=== PATIENT | male | born 1970 ===

== ENCOUNTER 2021-08-03 09:46 | Emergency (ER) | payer OTHER, SELFPAY ==
[2021-08-03 09:51] VITALS: BP 131/89; PULSE 95; RESP 18; TEMP 36.3; O2SAT 99; BMI 33.9
[2021-08-03 09:53] VITALS: BP 124/94; PULSE 76; RESP 18; TEMP 36.6; O2SAT 100
--- NOTE | 2021-08-03 09:55 | XRR_ITS ---
PROCEDURE INFORMATION: Exam: XR Right Ankle Exam date and time: 08/03/2021 10:48 AM Age: 51 years old Clinical indication: Injury or trauma; Fall; Blunt trauma; Ankle; Right; Additional info: Right ankle pain after injury TECHNIQUE: Imaging protocol: XR Right ankle. Views: Frontal, lateral, and oblique, 3 views. COMPARISON: No relevant prior studies available. FINDINGS: Bones/joints: Oblique displaced fracture of the distal fibular metadiaphysis extending superior posteriorly from the level of the tibiotalar joint, 3.6 mm posterior, 9.1 mm lateral displacement of the distal segment, slight varus alignment. Widening of the medial ankle joint mortise measuring 11.3 mm with lateral subluxation of the talus relative to the distal tibia. Medial talar dome deformity suggesting possible chronic osteochondral defect. A small plantar calcaneal ossified spur is present. A small Achilles' tendon enthesis of the calcaneus is present. Soft tissues: Slight lateral soft tissue swelling (less than expected, acute?). XR/XR ankle RT min 3V* [id number] IMPRESSION: 1. Acute distal fibular fracture. 2. Medial collateral ligamentous injury. 3. Medial talar dome deformity suggesting possible chronic osteochondral defect. 4. Plantar calcaneal spur. 5. Achilles tendon insertional enthesopathy.
--- NOTE | 2021-08-03 10:59 | W.ED.EXTPRO ---
HPI - Extremity Problem General: Chief complaint: Extremity Injury, Lower Stated complaint: right foot dislocation Time Seen by Provider: 08/03/21 10:45 Source: patient Mode of arrival: ambulatory Limitations: no limitations History of Present Illness: 51-year-old male presents to the ER today for right ankle pain and dislocation. Patient reports he was running yesterday and slipped on wet grass. He reports his ankle turned inward and displaced. Patient reports he went down and was able to pop the ankle back into place and make it home. Patient reports pain with weightbearing and movement. He reports pain at rest is tolerable. Patient denies ever having done anything like this before. He reports there is moderate swelling this morning with some bruising. Review of Systems General: Reports: 10 or more systems reviewed and unremarkable except in HPI and below Physical Exam Const: COMMON NORMALS: no acute distress, average body habitus, patient oriented x3, no limitations, healthy appearing, alert and well nourished Neck/C-Spine: COMMON NORMALS: full ROM Resp: COMMON NORMALS: normal respiratory effort and No retractions Cardio: COMMON NORMALS: regular rate and regular rhythm RATE: regular rate RHYTHM: regular rhythm Extremity: NARRATIVE EXTREMITY EXAM: Patient has pain with flexion and extension of the right ankle. There is moderate swelling noted and tenderness to the distal fibula. Mild bruising also noted surrounding the lateral malleolus. Neuro: COMMON NORMALS: patient oriented x3 SENSORIUM/ORIENTATION: Yes alert Psych: COMMON NORMALS: mental status grossly normal, Normal thought process present and cooperative THOUGHT PROCESS: Normal thought process present Skin: COMMON NORMALS: no rashes or lesions noted NARRATIVE SKIN EXAM: Bruising noted to the right ankle GENERAL SKIN EXAM: no rashes or lesions noted Course ED course: 51 old male presents to the ER today for right ankle pain after a fall yesterday while running. Patient reports he had to pop his ankle back into place when he fell. He reports pain with weightbearing. We will get x-ray at this time. Consultations: Consultation #1: I spoke with Dr. Cronin regarding pts displaced ankle fracture. He recommended splinting pt and having him F/U this week in clinic. Time: 12:05 Vital Signs: Vital signs: Vital Signs Temperature 97.8 F 08/03/21 09:53 Pulse Rate 76 08/03/21 09:53 Respiratory Rate 18 08/03/21 09:53 Blood Pressure 124/94 08/03/21 09:53 Pulse Oximetry 100 08/03/21 09:53 MDM - Extremity (Nontraumatic) Medical Decision Making 51-year-old male presents to the ER today for right ankle pain after slipping in wet grass yesterday. Patient reports he dislocated his ankle at that time and put it back into place. Patient reports continued pain with weightbearing and an unstable ankle. Patient on exam appears to have swelling and bruising noted to the right ankle. X-ray indicates a dislocated distal fibular fracture with ligamentous injuries. Discussed findings with patient and also Dr. Cronin. Dr. Cronin recommended patient follow-up in clinic this week. Case management referral placed. Patient was placed in a stirrup splint in the ER. Patient was offered pain medications however refused at this time. We will send him home with ketorolac to be used as needed. Recommended patient stay off of his foot at this time. Work note given. Patient has crutches with him. Rest, ice and elevation recommended. Return to the ER with new or worsening symptoms. Patient verbalized understanding and is in agreement with the treatment plan. Lab Data Radiology Impressions Ankle X-Ray 08/03/21 09:55 IMPRESSION: 1. Acute distal fibular fracture. 2. Medial collateral ligamentous injury. 3. Medial talar dome deformity suggesting possible chronic osteochondral defect. 4. Plantar calcaneal spur. 5. Achilles tendon insertional enthesopathy. Critical Care Time Critical Care Time: Critical Care Time: No Discharge Plan Discharge Patient Disposition: Home Clinical Impression: Displaced fracture of right fibula Condition: Stable Prescriptions: New ketorolac 10 mg tablet 10 mg PO Q8H PRN (Reason: pain) 3 Days Qty: 12 0RF Discharge Orders: Discharge ED (Routine); Ordered 08/03/21 Ordered By: Parul Sepulveda Discharge Diet: Usual diet Discharge Activity: Limit activity as instructed and Use walker/crutches as instructed Patient Instructions: Opioid Safety Activity Restrictions/Additional Instructions: Alternate Tylenol and Motrin for pain. Rest, ice, elevation recommended. Do not get splint wet. Follow-up with orthopedic surgeon as discussed. Remain nonweightbearing at all times. Return to the ER with new or worsening symptoms. Stand Alone Forms: Work/School Release Coding Level of Care Code ED Lacquer Coater for Pranay Fwd Exam Detailed
[2021-08-03 12:33] VITALS: BP 125/91; PULSE 93; RESP 16; TEMP 37.2; O2SAT 98
--- NOTE | 2021-08-04 15:41 | DCPLANNER ---
Addendum entered by Jodee Guerrero 08/07/21 07:22: Patient had a follow up appointment scheduled at ortho, with - patient did attend appointment. Original Note: lean manager had message to schedule a follow up appointment for patient with ortho. lean manager sent patients information to the front office staff at ortho. Patients information will be printed and reviewed. Clinic will call patient with appointment information.
== END 2021-08-03 12:57 | disposition home or self-care (01) ==
PROVIDERS: Emergency Provider Physician Assistant
DX: S82.431A Displaced oblique fracture of shaft of right fibula, initial encounter for closed fracture (principal); W01.0XXA Fall on same level from slipping, tripping and stumbling without subsequent striking against object, initial encounter; Y93.02 Activity, running
CPT/HCPCS: 29515; 73610; 99283

== ENCOUNTER 2021-08-05 14:50 | Outpatient (CLI) | payer OTHER, SELFPAY | END 2021-08-05 14:51 | disposition home or self-care (01) | LOC: SPT 14:51 | PROVIDERS: Visit Provider Podiatrist Foot & Ankle Surgery | DX: Z46.89 Encounter for fitting and adjustment of other specified devices (principal); S82.851D Displaced trimalleolar fracture of right lower leg, subsequent encounter for closed fracture with routine healing; X58.XXXD Exposure to other specified factors, subsequent encounter | CPT/HCPCS: 97760; L4361 ==

== ENCOUNTER 2021-08-07 05:30 | Day surgery (SDC) | payer OTHER, SELFPAY ==
[2021-08-06 15:41] VITALS: BMI 33.9
[2021-08-07] VITALS (9 sets, daily range): BP systolic 99–133; BP diastolic 66–93; PULSE 71–95; RESP 12–17; TEMP 36.3–36.6; O2SAT 93–99
--- NOTE | 2021-08-07 | SCC_ITS ---
Procedure done: Open reduction internal fixation right trimalleolar fracture. CPT 07405 16 seconds of fluoroscopic guidance, for a cumulative dose of 0.481 mGy, was provided to Dr. Lynn by the radiology department. C-arm images of the right ankle were saved for the patient's permanent record. [facility]
[2021-08-07] MEDS: CELEcoxib 200 mg Capsule 400 MG PO (06:18)
[2021-08-07] MEDS: gabapentin 300 mg Capsule PO (06:18)
[2021-08-07] MEDS: sodium chloride 0.9% 1,000 ML 30 ML IV (06:21)
--- NOTE | 2021-08-07 06:35 | W.PM.OPSUD ---
Surgery/Procedure H&P Update DATE OF PROCEDURE: August 07, 2021 DATE H&P PERFORMED: 08/05/21 CHANGES TO PREVIOUS DOCUMENTATION: None PREOP DIAGNOSIS: Right trimalleolar fracture PLANNED PROCEDURE: Operation Date: 08/07/21 07:00 Proposed Procedures p ORIF Ankle 89312/S82.851A(Right) - Real Lynn DPM
--- NOTE | 2021-08-07 06:39 | XRR_ITS ---
PROCEDURE INFORMATION: Exam: XR Right Ankle Exam date and time: 08/07/2021 6:45 AM Age: 51 years old Clinical indication: Condition or disease; Other: Fracture; Additional info: Pre op eval TECHNIQUE: Imaging protocol: XR Right ankle. Views: 3 or more views. Total images: 3 COMPARISON: CR (LOW EXM, ) 08/03/2021 10:48 AM FINDINGS: Bones/joints: Oblique fracture of the distal right fibular metadiaphyseal area with distal fragment showing normal relationship with talus. Linear lucency along the posterior malleolus suggest nondisplaced fracture unchanged. Lucency seen along the medial talar dome suggest subchondral cysts and appears unchanged from prior exam. A heel spur is present. An enthesophyte is noted at the Achilles tendon insertion site. Soft tissues: Widening of medial ankle joint space suggesting deltoid ligament disruption with medial translation of tibia and proximal fibular fragment. XR/XR ankle RT min 3V* [id number] IMPRESSION: 1. Oblique fracture of the distal right fibular metadiaphyseal area with distal fragment showing normal relationship with talus. 2. Widening of medial ankle joint space suggesting deltoid ligament disruption with medial translation of tibia and proximal fibular fragment. 3. Linear lucency along the posterior malleolus suggest nondisplaced fracture unchanged. 4. Lucency seen along the medial talar dome suggest subchondral cysts and appears unchanged from prior exam.
--- NOTE | 2021-08-07 06:43 | P.OP_ITS ---
Operative Report Date of procedure: August 07, 2021 Pre-op diagnosis: Right trimalleolar fracture Post-op diagnosis: Right trimalleolar fracture Post-op findings: None Procedure done: Open reduction internal fixation right trimalleolar fracture. CPT 37198 Implants: [place] anatomic fibular plate, 3.5 mm locking and nonlocking screws, Arthrex tight rope XP. 2-0 Vicryl, 3-0 Vicryl, skin nohelia. Pathology: None Surgeon: Real Lynn D.P.M. Property Management Bookkeeper: Rodney Estimated blood loss: 5 Approximately 34 minutes IV fluids: None Urine output: None Complications: None Findings: None Brief History: Patient slipped in wet grass sustaining a trimalleolar ankle fracture with significant displacement of the fibula as well as external rotation, talus was approximately 25% laterally displaced out of the mortise. This was a closed fracture, no open wounds. I explained to the patient the necessity of ORIF given the gross instability and displacement of his fracture. He is agreeable. Also informed the patient that he has a osteochondral defect at the medial talar dome that measures over 1 cm has age-indeterminate appearance but appears older with some resorption and sclerosing at the margins of the OCD. Patient declined operative intervention on the osteochondral defect, he also believes that it is older due to previous injury and that it does not cause him pain on a daily basis and would like to leave it alone for now. Will proceed with ORIF of right trimalleolar fracture. Risks include but are not limited to pain, bleeding, numbness, infection, hardware failure, hardware rotation, delayed union, malun ion, nonunion, high likelihood of posttraumatic arthritis. Risk for deep vein thrombosis, heart attack, stroke and . Patient is n.p.o. since midnight. Informed consent signed by patient and myself. I initialed his right lower extremity. He wishes to proceed. No guarantees written, expressed or implied. Procedure: Under mild sedation the patient was brought to the operating room and placed on the operating table in supine position. A timeout was performed. Anesthesia was then administered by the anesthesia service. Local anesthesia injected by myself consisting of one-to-one mixture 1% lidocaine and 0.5 sent Marcaine plain in a right ankle block fashion. Well-padded pneumatic tourniquet applied high calf to the right lower extremity. The right lower extremity was then scrubbed, prepped and draped utilizing normal aseptic technique. Right lower extremity was then exanguinated with an Esmarch bandage and the tourniquet inflated to 250 mmHg. Attention was directed to the right lateral malleolus where a linear longitudinal incision was made directly over the right distal fibula. Dissection carried down through subcutaneous tissue down to the layer of periosteum utilizing blunt and sharp technique. Care was taken to retract and preserve neurovascular and tendinous structures. All bleeders were ligated and cauterized as necessary. Periosteal incision was made. Fracture was distracted and evacuated of hematoma. Fracture was then reduced to length and derotated this was temporarily stabilized with a fracture reduction forcep followed by fixation with a interfrag screw perpendicular to the fracture pattern utilizing standard AO technique with excellent bony apposition and compression noted. Fracture was further stabilized with rigid internal fixation utilizing an anatomic fibular plate by [employer] with a combination of 3.5 locking and nonlocking screws. Care was taken not to violate ankle mortise this was confirmed with fluoroscopy. Cotton hook test demonstrated syndesmotic disruption with diastases between the tibia and fibula. This was stabilized utilizing a Arthrex tight rope XP and Quadra cortical fashion and parallel to the ankle joint. Excellent placement of hardware and reduction of fracture in all 3 planes confirmed with intraoperative fluoroscopy. Smooth range of motion without crepitus intraoperatively at the right ankle. The incisions were then flushed with saline solution and closed with 2-0 Vicryl, 3-0 Vicryl and skin nohelia. Incisions were dressed with Adaptic, sterile 4 x 4, Kerlix and Tal wrap followed by application of a cam boot. Tourniquet was deflated and a prompt hyperemic response was noted to the distal digits of the right lower extremity. Patient was transferred to the PACU with vital signs stable and vascular status intact. Following a period of postoperative monitoring he will be discharged home is to remain strict nonweightbearing he is to elevate his right lower extremity, advised him to be taking a aspirin starting tomorrow morning after surgery this will be an 81 mg aspirin to potentially reduce the risk of deep vein thrombosis. Will follow-up in clinic next week for dressing change.
[2021-08-07] MEDS: lidocaine 2% INJ 20 mL INJECTION (07:28)
--- NOTE | 2021-08-07 08:21 | XRR_ITS ---
PROCEDURE INFORMATION: Exam: XR Right Ankle Exam date and time: 08/07/2021 8:33 AM Age: 51 years old Clinical indication: Device placement; Other: Post op; Prior surgery; Surgery date: Post-operative (0-2 days) TECHNIQUE: Imaging protocol: XR Right ankle. Views: 3 or more views. Total images: 3 COMPARISON: CR XR ankle RT min 3V* [id number] 08/07/2021 6:45 AM FINDINGS: Tubes, catheters and devices: Distal tibiofibular syndesmotic cord device with retention button along medial cortex. Bones/joints: Status post open reduction internal fixation of distal right fibular fracture with good purchase of fracture fragments. Improvement of medial joint space widening with again noted subchondral cysts and or injury to medial talar dome. A heel spur is present. An enthesophyte is noted at the Achilles tendon insertion site. Tiny ossification along posterior malleolus again noted. Soft tissues: Normal. XR/XR ankle RT min 3V* [id number] IMPRESSION: 1. Status post open reduction internal fixation of distal right fibular fracture with good purchase of fracture fragments. 2. Distal tibiofibular syndesmotic cord device with retention button along medial cortex. 3. Improvement of medial joint space widening with again noted subchondral cysts and or injury to medial talar dome. 4. Tiny ossification along posterior malleolus again noted.
--- NOTE | 2021-08-07 09:20 | ANES.PREANE2 ---
Pre-Anesthetic Assessment Height/Weight: Height 1.83 m Weight 113.398 kg Temp Pulse Resp BP Pulse Ox 97.6 F 79 16 125/68 98 08/07/21 08:43 08/07/21 08:43 08/07/21 08:43 08/07/21 08:43 08/07/21 08:43 Preop Diagnosis: Right trimalleolar fracture Operation Date: 08/07/21 07:00 Proposed Procedures p ORIF Ankle 33834/S82.851A(Right) - Real Lynn DPM Familial anesthetic complications: None Was Beta Jarrod taken within 24 hours: N/A Was Clonidine taken within 24 hours: N/A Last intake: Intake Last Liquid Date 08/06/21 Last Liquid Time 15:00 Last Solid Date 08/06/21 Last Solid Time 15:00 Social No alcohol and No tobacco Exam alert, oriented x 3, clear to auscultation bilaterally and regular rate & rhythm Airway Submandibular: within normal limits Cervical ROM: within normal limits Mallampati: Class II Dentition: full History/ROS No significant history except as noted Metabolic Morbid Obesity Anesthetic Plan ASA status: 2 Anesthesia: General Medications/Allergies Home Medications Medication Instructions Recorded Confirmed Last Taken Type Cam boot to right #1 ea 08/05/21 08/07/21 Unknown Rx hydrocodone 10 mg-acetaminophen 1 tab PO Q6H 7 Days #20 tab 08/07/21 Unknown Rx 325 mg tablet Allergies Allergy/AdvReac Type Severity Reaction Status Date / Time No Known Allergies Allergy Verified 08/07/21 06:24 Current Medications Generic Name Dose Route Start Last Admin Trade Name Freq PRN Reason Stop Dose Admin Sodium Chloride 1,000 mls @ 30 mls/hr 08/07/21 05:45 08/07/21 08:45 Sodium Chloride 0.9% IV 08/08/21 05:44 Infused .Q24H LARA Infusion PFSH Anesthesia Social History Smoking and tobacco status: never smoked Data Anesthesia Cardiac Studies: No Data to Display
--- NOTE | 2021-08-07 09:21 | ANE.PACU2 ---
Inpatient post-anesthesia follow up: Airway intact: Yes Vital signs: Temperature 97.6 F Pulse Rate 79 Respiratory Rate 16 Blood Pressure 125/68 Pulse Oximetry 98 Oxygen Delivery Me thod Room Air Oxygen Flow Rate 6 Fraction of Inspir ed Oxygen Hydration adequate: Yes Nausea and vomiting: No Pain level: 2 Mental status: Baseline
== END 2021-08-07 09:25 | disposition home or self-care (01) ==
PROVIDERS: Visit Provider Podiatrist Foot & Ankle Surgery
PROC: (CPT 27822; principal; 2021-08-07 07:00)
DX: S82.851A Displaced trimalleolar fracture of right lower leg, initial encounter for closed fracture (principal); W01.0XXA Fall on same level from slipping, tripping and stumbling without subsequent striking against object, initial encounter; E66.01 Morbid (severe) obesity due to excess calories; Z68.33 Body mass index [BMI] 33.0-33.9, adult
CPT/HCPCS: 27822; 73610; 76000; C1713; J0690; J1100; J1170; J1200; J1885; J2250; J2370; J2405; J2704; J3490; J7030

== ENCOUNTER → 2021-08-22 12:59 | Outpatient (BNVA) | payer OTHER, SELFPAY | PROVIDERS: Visit Provider Podiatrist Foot & Ankle Surgery | DX: Z98.890 Other specified postprocedural states (principal); S82.831D Other fracture of upper and lower end of right fibula, subsequent encounter for closed fracture with routine healing; X58.XXXD Exposure to other specified factors, subsequent encounter | CPT/HCPCS: 73610 ==

== ENCOUNTER → 2021-09-04 15:23 | Outpatient (BNVA) | payer OTHER, SELFPAY | PROVIDERS: Visit Provider Podiatrist Foot & Ankle Surgery | DX: Z98.890 Other specified postprocedural states (principal); M77.31 Calcaneal spur, right foot | CPT/HCPCS: 73610 ==

== ENCOUNTER → 2021-09-22 13:56 | Outpatient (BNVA) | payer OTHER, SELFPAY | PROVIDERS: Visit Provider Podiatrist Foot & Ankle Surgery | DX: Z98.890 Other specified postprocedural states (principal); Z48.89 Encounter for other specified surgical aftercare | CPT/HCPCS: 73610 ==

== ENCOUNTER 2021-09-22 14:59 | Outpatient (CLI) | payer OTHER, SELFPAY | END 2021-09-22 15:00 | disposition home or self-care (01) | LOC: SPT 15:01 | PROVIDERS: Visit Provider Podiatrist Foot & Ankle Surgery | DX: Z47.89 Encounter for other orthopedic aftercare (principal) | CPT/HCPCS: 97760; L1902 ==

== ENCOUNTER → 2021-10-07 13:07 | Outpatient (BNVA) | payer OTHER, SELFPAY | PROVIDERS: Visit Provider Podiatrist Foot & Ankle Surgery | DX: Z98.890 Other specified postprocedural states (principal); S82.851D Displaced trimalleolar fracture of right lower leg, subsequent encounter for closed fracture with routine healing; X58.XXXD Exposure to other specified factors, subsequent encounter | CPT/HCPCS: 73610 ==

== ENCOUNTER → 2021-12-04 08:00 | Outpatient (BNVA) | payer OTHER, SELFPAY | PROVIDERS: Visit Provider Podiatrist Foot & Ankle Surgery | DX: Z98.890 Other specified postprocedural states (principal) | CPT/HCPCS: 73610 ==